=== PATIENT | male | born 1965 | race Caucasian/White ===

== ENCOUNTER 2022-09-20 08:15 | Outpatient (RCR) | payer BC, SELFPAY ==
[2022-07-19 09:48] VITALS: BMI 27.5
[2022-09-20 08:17] VITALS: BMI 25.9
[2022-09-20 08:21] VITALS: BMI 25.9
== END 2022-09-25 08:53 | disposition home or self-care (01) ==
LOC: ANHDMC 08:15
PROVIDERS: PCP Family Medicine; Visit Provider Family Medicine
DX: E11.65 Type 2 diabetes mellitus with hyperglycemia (principal); Z71.89 Other specified counseling; Z71.3 Dietary counseling and surveillance
CPT/HCPCS: 97802; 97803; G0108

== ENCOUNTER 2022-12-01 14:04 | Emergency (ER) | payer BC, SELFPAY ==
--- NOTE | ~2022-12-01 | XR_ITS ---
EXAMINATION: XR foot LT min 3V DATE: 12/01/2022 16:20 INDICATION: Left foot pain TECHNIQUE: Dorsoplantar, lateral, and oblique views of the left foot were obtained. COMPARISON: None. FINDINGS: No fracture, dislocation, or subluxation. The bones, soft tissues, and joint spaces are nor mal. IMPRESSION: 1. No acute osseous abnormality. Reviewed, dictated and finalized at location B.
[2022-12-01 14:07] VITALS: BP 169/96; PULSE 110; RESP 14; TEMP 37.2; O2SAT 100
--- NOTE | 2022-12-01 16:08 | ED.GENADULT ---
HPI - General Adult General Chief complaint: Extremity Problem,Nontraumatic Stated complaint: Toe injury non traumatic Time Seen by Provider: 12/01/22 15:42 History of Present Illness HPI narrative: Paulette Shearer is a 57 y/o male who presents with reports of a recent diagnosis of DM type 2 6 months ago and has currently been controlled with Metformin and diet changes. He has also had bilateral lower extremity neuropathy for the past 6 months. He comes in today with reports of noticing that his left great toe is bruised and slightly swollen. He is not sure if he injured it, but states he has been doing a lot of stretching/ yard work and thinks he might of without knowing it. He states that he did not look at his feet/toes yesterday and not sure if he did the day before that so not sure how long it has been bruised. Related Data Allergies Allergy/AdvReac Type Severity Reaction Status Date / Time cephalexin Allergy Intermediate Palpitation Verified 12/01/22 14:16 s levofloxacin Allergy Unknown Other Verified 12/01/22 14:16 Sulfa (Sulfonamide Allergy Unknown Palpitation Verified 12/01/22 14:16 Antibiotics) s Review of Systems Review of Systems: CONSTITUTIONAL: Denies fever, chills, or sweats. EYES: Denies visual changes, redness, or discharge. ENT: Denies rhinorrhea, congestion, sore throat, or otalgia. CARDIOVASCULAR: Denies chest pain, palpitations, or edema. RESPIRATORY: Denies cough or dyspnea. GASTROINTESTINAL: Denies abdominal pain, nausea, vomiting, or diarrhea. GENITOURINARY: Denies dysuria or hematuria. SKIN: Denies rash or itching. MUSCULOSKELETAL: Complains of left great toe swelling/ bruising that he noticed today. NEUROLOGIC: Denies headache, numbness, dizziness, or weakness. PSYCHIATRIC: Denies anxiety or depression. [facility] Past Medical History Medical History BMI 28.0-28.9,adult BMI 29.0-29.9,adult Colon cancer screening COVID (03/12/21) Encounter for prostate cancer screening PSA 0.40 06/09/2022. Encounter for wellness examination in adult Obesity (BMI 30.0-34.9) Overweight (BMI 25.0-29.9) Protein in urine (06/09/22) Type 2 diabetes mellitus with hyperglycemia (~06/09/22) fasting glucose 338 with 3+ glucose and urine 06/09/2022. Family History Family History Father Patient's father is , Onset Age: 62 Sibling Acute myocardial infarction, Onset Age: 62 Grandparent Family history of congestive heart failure, Onset Age: 70 Mother Family history of congestive heart failure, Onset Age: 90 Social History Social History Smoking status: Never smoker Alcohol intake: current Alcohol use details: occasionally Substance use: never Substance use type: does not use Lack of Transportation: No Lack of Food: Never True Current Housing: I Have Housing Concerned About Future Housing: No Difficulty Paying Gas/Electric Bills: No Difficulty Paying for Meds: No Currently Unemployed: No Education: Associate Degree Difficulty w/ Childcare or Family Care: No Spiritual care concerns: No Exam Narrative: GENERAL: Well-appearing, well-nourished, and in no acute distress. HEAD: Normocephalic, atraumatic. EYES: PERRLA and EOMI. ENT: Nares clear, no rhinorrhea or epistaxis. Mucous membranes moist. Oropharynx without tonsillar hypertrophy exudate or other lesions. NECK: Supple. No adenopathy or masses. No carotid bruits or JVD CHEST: Clear to auscultation. No respiratory distress. No wheezes rales or rhonchi HEART: Regular rate and rhythm. No murmur heard. Normal peripheral pulses. ABDOMEN: Soft, nontender, nondistended, normal active bowel sounds. EXTREMITIES: Normal range of motion. Ecchymosis with swelling noted to left great toe, ROM intact SKIN: Warm, dry, no rash. N
[2022-12-01 16:19] LABS: Basophils Absolute Auto 0.1 K/mm3 (0.0-0.1); Basophils Percent Auto 0.4 % (0.2-1.2); Eosinophils Absolute Auto 0.1 K/mm3 (0-0.3); Eosinophils Percent Auto 1.2 % (0-4.4); Hemoglobin 14.4 g/dL (14.0-18.0); Immature Granulocyte Absolute 0.04 K/mm3 (0.00-0.031); Immature Granulocyte Percent A 0.3 % (0-0.5); Lymphocytes Absolute Auto 2.58 K/mm3 (0.9-3.2); Lymphocytes Percent Auto 21.4 % (18.3-44.2); Mean Corpuscular HGB Conc 33.5 g/dl (32-36); Mean Corpuscular Hemoglobin 30.9 pg (26-34); Mean Corpuscular Volume 92.3 fl (80-100); Monocytes Percent Auto 8.1 % (2.6-8.5); Neutrophils Absolute Auto 8.3 K/mm3 (1.3-6.7); Neutrophils Percent Auto 68.6 % (45.5-73.1); Platelet Count Result 178 k/mm3 (150-375); Red Blood Count 4.66 M/mm3 (4.6-6.20); Red Cell Distribution Width 12.5 % (11.5-14.5); White Blood Count 12.1 K/mm3 (4.5-10.0)
[2022-12-01 16:28] LABS: Anion Gap 9 mmol/L (8-16); Blood Urea Nitrogen 18 mg/dL (9-20); Calcium 9.5 mg/dL (8.4-10.2); Carbon Dioxide 26 mmol/L (22-30); Chloride 105 mmol/L (98-107); Estimated CRCL calculation 90 ml/min; Estimated Glomerular Filt Rate > 60; Glucose 138 mg/dL (65-110); Potassium 4.1 mmol/L (3.4-5.0); Sodium 140 mmol/L (137-145)
[2022-12-01] MEDS: CLINDAMYCIN HCL 150 MG CAP 450 MG PO (17:24)
[2022-12-01 17:30] VITALS: BP 151/86; PULSE 73; RESP 16; O2SAT 98
== END 2022-12-01 17:31 | disposition home or self-care (01) ==
PROVIDERS: Emergency Provider Nurse Practitioner Family; PCP Family Medicine
DX: S90.112A Contusion of left great toe without damage to nail, initial encounter (principal); E11.40 Type 2 diabetes mellitus with diabetic neuropathy, unspecified; E66.9 Obesity, unspecified; Z68.25 Body mass index [BMI] 25.0-25.9, adult; Z86.16 Personal history of COVID-19; Z79.84 Long term (current) use of oral hypoglycemic drugs; Z79.85 Long-term (current) use of injectable non-insulin antidiabetic drugs; X58.XXXA Exposure to other specified factors, initial encounter
CPT/HCPCS: 36415; 73630; 80048; 85025; 99283; A9270

== ENCOUNTER 2023-11-06 01:57 | Day surgery (SDC) | payer BC, SELFPAY ==
[2023-10-26 09:31] VITALS: BMI 27.3
[2023-11-06 06:17] VITALS: BP 153/90; PULSE 94; RESP 18; TEMP 36.4; O2SAT 100
[2023-11-06 06:19] VITALS: BMI 26.8
[2023-11-06 06:27] LABS: Glucose Point of Care 150 mg/dl (65-105)
[2023-11-06] MEDS: LACTATED RINGERS 1,000 ML 150 ML IV CONT (06:32)
--- NOTE | 2023-11-06 07:19 | PM.HPGS ---
History of Present Illness History of Present Illness Consent: Risks, benefits, and alternatives have been discussed and questions answered. Patient agrees to proceed with procedure. Chief complaint: neoplasm screening Narrative: Paulette Shaerer is a 58 year old male here for first screening colonoscopy Review of Systems Review of Systems: All systems reviewed & are unremarkable except as noted in HPI and below PMFSH Past Medical History Medical History (Updated 07/23/23 @ 12:19 by Gino Romero MD) BMI 25.0-25.9,adult BMI 26.0-26.9,adult BMI 28.0-28.9,adult BMI 29.0-29.9,adult Body mass index (BMI) 35.0-35.9, adult (07/18/18) Chronic bilateral low back pain without sciatica Colon cancer screening COVID (03/12/21) DM type 2 with diabetic peripheral neuropathy Encounter for prostate cancer screening PSA 0.40 06/09/2022. PSA 0.42 on 07/16/2023. Encounter for wellness examination in adult Essential hypertension Leukocytosis (12/01/22) WBC slightly elevated at 12.1 on 12/01/2022. WBC normal at 9.3 on 07/16/2023. Obesity (BMI 30.0-34.9) Overweight (BMI 25.0-29.9) Plantar wart of left foot (~2022) Protein in urine (06/09/22) Urinalysis with no gross protein. Microalbumin ratio elevated at 42 on 07/16/2023. Symptomatic varicose veins of left lower extremity Type 2 diabetes mellitus with hyperglycemia (~06/09/22) fasting glucose 338 with 3+ glucose and urine 06/09/2022. Glucose 138 on 12/01/2022. Fasting glucose 140 with hemoglobin A1c 6.9 with microalbumin ratio of 42 on 07/16/2023. Family History Family History Father Patient's father is , Onset Age: 62 Sibling Acute myocardial infarction, Onset Age: 62 Grandparent Family history of congestive heart failure, Onset Age: 70 Mother Family history of congestive heart failure, Onset Age: 90 Social History Social History Smoking status: Never smoker Alcohol intake: current Alcohol use details: occasionally Substance use: never Substance use type: does not use Other substance usage details: CANNABIS PRESCRIPTION Lack of Transportation: No Lack of Food: Never True Current Housing: I Have Housing Concerned About Future Housing: No Difficulty Paying Gas/Electric Bills: No Difficulty Paying for Meds: No Currently Unemployed: No Education: Associate Degree Difficulty w/ Childcare or Family Care: No Living arrangements: with family Spiritual care concerns: No Meds Home Medications and Allergies Home Medications Medication Instructions Recorded Confirmed Type meloxicam 15 mg tablet 15 mg PO DAILY PRN pain #90 tabs 01/27/21 11/06/23 Rx sildenafil 100 mg tablet 100 mg PO DAILY PRN sexual 06/08/22 11/06/23 Rx activity #90 tabs blood-glucose meter (OneTouch #1 ea 06/27/22 11/06/23 Rx Ultra2 Meter kit) lancets 33 gauge (OneTouch Delica #100 ea 07/07/22 11/06/23 Rx Plus Lancet) orphenadrine citrate 100 mg 100 mg PO Q12H PRN spasm #60 tabs 10/25/22 11/06/23 Rx tablet,extended release cannabis 1 gummy BYMOUTH PRN PRN NEUROPATHY 12/18/22 11/06/23 History blood sugar diagnostic (OneTouch #100 ea 03/13/23 11/06/23 Rx Ultra Test strips) fluticasone propionate 50 1 spray intranasal BID #16 grams 05/15/23 11/06/23 Rx mcg/actuation nasal spray,suspension (Flonase Allergy Relief) metformin 500 mg tablet 1,000 mg PO BID #120 tabs 07/09/23 11/06/23 Rx losartan 50 mg tablet 50 mg PO DAILY #30 tabs 07/23/23 11/06/23 Rx Allergies Allergy/AdvReac Type Severity Reaction Status Date / Time cephalexin Allergy Severe Palpitation Verified 10/26/23 09:33 s levofloxacin Allergy Severe Hallucinati Verified 10/26/23 09:33 ng Sulfa (Sulfonamide Allergy Severe Palpitation Verified 10/26/23 09:33 Antibiotics) s Vital Signs Vital Signs - 2
--- NOTE | 2023-11-06 07:25 | WPDANESEPPF ---
Anes - Initial Pre Proc Eval Procedure: Operation Date: 11/06/23 07:30 Proposed Procedures p Screening Colonoscopy - Yvan Maloney MD Date/Time: 11/06/23 07:25 Surgeon: Yvan Maloney MD Pre Op Diagnosis: neoplasm screening Patient Data Age: 58 Gender: M Height: 1.78 m Weight: 84.7 kg Last Vital Signs Temp 97.5 F L 11/06/23 06:17 Pulse 94 11/06/23 06:17 Resp 18 11/06/23 06:17 BP 153/90 H 11/06/23 06:17 Pulse Ox 100 11/06/23 06:17 O2 Del Method Room Air 11/06/23 06:17 Allergies Allergy/AdvReac Type Severity Reaction Status Date / Time cephalexin Allergy Severe Palpitation Verified 10/26/23 09:33 s levofloxacin Allergy Severe Hallucinati Verified 10/26/23 09:33 ng Sulfa (Sulfonamide Allergy Severe Palpitation Verified 10/26/23 09:33 Antibiotics) s Home Medications Medication Instructions Recorded Confirmed Type meloxicam 15 mg tablet 15 mg PO DAILY PRN pain #90 tabs 01/27/21 11/06/23 Rx sildenafil 100 mg tablet 100 mg PO DAILY PRN sexual 06/08/22 11/06/23 Rx activity #90 tabs blood-glucose meter (OneTouch #1 ea 06/27/22 11/06/23 Rx Ultra2 Meter kit) lancets 33 gauge (OneTouch Delica #100 ea 07/07/22 11/06/23 Rx Plus Lancet) orphenadrine citrate 100 mg 100 mg PO Q12H PRN spasm #60 tabs 10/25/22 11/06/23 Rx tablet,extended release cannabis 1 gummy BYMOUTH PRN PRN NEUROPATHY 12/18/22 11/06/23 History blood sugar diagnostic (OneTouch #100 ea 03/13/23 11/06/23 Rx Ultra Test strips) fluticasone propionate 50 1 spray intranasal BID #16 grams 05/15/23 11/06/23 Rx mcg/actuation nasal spray,suspension (Flonase Allergy Relief) metformin 500 mg tablet 1,000 mg PO BID #120 tabs 07/09/23 11/06/23 Rx losartan 50 mg tablet 50 mg PO DAILY #30 tabs 07/23/23 11/06/23 Rx Laboratory Tests 11/06/23 06:25 POC Capillary Glucose 150 H mg/dl (65-105) Patient hx anesthesia problems: none Family hx anesthesia problems: none Results Review: All pre-operative results and documents have been reviewed as part of the pre-operative evaluation. [facility] Past Medical History Medical History (Updated 07/23/23 @ 12:19 by Gino Romero MD) BMI 25.0-25.9,adult BMI 26.0-26.9,adult BMI 28.0-28.9,adult BMI 29.0-29.9,adult Body mass index (BMI) 35.0-35.9, adult (07/18/18) Chronic bilateral low back pain without sciatica Colon cancer screening COVID (03/12/21) DM type 2 with diabetic peripheral neuropathy Encounter for prostate cancer screening PSA 0.40 06/09/2022. PSA 0.42 on 07/16/2023. Encounter for wellness examination in adult Essential hypertension Leukocytosis (12/01/22) WBC slightly elevated at 12.1 on 12/01/2022. WBC normal at 9.3 on 07/16/2023. Obesity (BMI 30.0-34.9) Overweight (BMI 25.0-29.9) Plantar wart of left foot (~2022) Protein in urine (06/09/22) Urinalysis with no gross protein. Microalbumin ratio elevated at 42 on 07/16/2023. Symptomatic varicose veins of left lower extremity Type 2 diabetes mellitus with hyperglycemia (~06/09/22) fasting glucose 338 with 3+ glucose and urine 06/09/2022. Glucose 138 on 12/01/2022. Fasting glucose 140 with hemoglobin A1c 6.9 with microalbumin ratio of 42 on 07/16/2023. Family History Family History Father Patient's father is , Onset Age: 62 Sibling Acute myocardial infarction, Onset Age: 62 Grandparent Family history of congestive heart failure, Onset Age: 70 Mother Family history of congestive heart failure, Onset Age: 90 Social History Social History Smoking status: Never smoker Alcohol intake: current Alcohol use details: occasionally Substance use: never Substance use type: does not use Other substance usage details: CANNABIS PRESCRIPTION Lack of Transportation: No Lack
[2023-11-06 07:46] VITALS: BP 104/73; PULSE 74; RESP 15; O2SAT 98
[2023-11-06 07:56] VITALS: BP 114/74; PULSE 73; RESP 17; O2SAT 97
[2023-11-06 08:06] VITALS: BP 123/88; PULSE 74; RESP 17; O2SAT 100
== END 2023-11-06 08:12 | disposition home or self-care (01) ==
PROVIDERS: PCP Family Medicine; Referring Provider Family Medicine; Visit Provider Internal Medicine Gastroenterology
PROC: 0DJD8ZZ Inspection of Lower Intestinal Tract, Via Natural or Artificial Opening Endoscopic (ICD-10-PCS; CPT 45378; principal; 2023-11-06 07:30)
DX: Z12.11 Encounter for screening for malignant neoplasm of colon (principal); K64.8 Other hemorrhoids; K57.30 Diverticulosis of large intestine without perforation or abscess without bleeding; E11.42 Type 2 diabetes mellitus with diabetic polyneuropathy; I10 Essential (primary) hypertension
CPT/HCPCS: 45378; 82948; J2001; J2704; J7120